=== PATIENT | male | born 1935 | race Caucasian/White ===

== ENCOUNTER → 2017-10-27 11:44 | Outpatient (CLI) | payer MEDICARE, SELFPAY ==
--- NOTE | 2017-10-27 12:00 | RAD_ITS ---
STUDY: X-RAY - RIGHT KNEE REASON FOR EXAM: Male, 82 years old. Right knee pain, no known injury TECHNIQUE: 4 view(s) of the knee. COMPARISON: None. FINDINGS: Normal visualized distal femur. Normal visualized proximal tibia and fibula. Normal proximal tibiofibular articulation. There is no demonstrated fracture. There is mild degenerative arthrosis of the medial femorotibial compartment. There is mild degenerative arthrosis of the lateral femorotibial compartment. There is mild degenerative arthrosis of the patellofemoral articulation. There is no demonstrated joint effusion. The soft tissue structures are unremarkable. RAD/Knee 4 or More Views IMPRESSION: Degenerative changes. No acute bony abnormality. Electronically Signed: Jose G Paz DO at 12:16 EDT Tel , Service support ,
== END ==
PROVIDERS: Visit Provider Anesthesiology Pain Medicine
DX: M25.561 Pain in right knee (principal)
CPT/HCPCS: 73564

== ENCOUNTER → 2017-11-16 10:20 | Outpatient (CLI) | payer MEDICARE, SELFPAY ==
--- NOTE | 2017-11-16 10:22 | RAD_ITS ---
STUDY: X-RAY - PELVIS AND RIGHT HIP REASON FOR EXAM: Male, 82 years old. Hip pain. TECHNIQUE: Radiological exam, hip, unilateral, with pelvis when performed; 2 or 3 views. COMPARISON: None. FINDINGS: Osseous alignments are anatomic. There is no acute fracture lucency. There is no cortical step-off. There is mild bilateral hip osteoarthritis. The patient is status post L4 and L5 posterior fusion with pedicle screws and rods. Calcified foci within the right pelvis soft tissues are most compatible with calcified phleboliths. RAD/HIP, UNI W/ Pelvis 2-3 Views IMPRESSION: No evident acute osseous abnormality. L4 and L5 fusion. Calcified pelvic phleboliths. Electronically Signed: Galileo Duarte MD at 11:12 EDT , Service support ,
== END ==
PROVIDERS: Visit Provider Anesthesiology Pain Medicine
DX: M25.551 Pain in right hip (principal)
CPT/HCPCS: 73502

== ENCOUNTER 2023-01-31 16:43 | Emergency (ER) | payer MEDICARE, SELFPAY ==
[2023-01-31 16:44] VITALS: BP 152/86; PULSE 89; RESP 14; TEMP 36.3; O2SAT 100; BMI 27.3
--- NOTE | 2023-01-31 16:54 | EDS_ITS ---
HPI History of Present Illness Chief Complaint: Upper Extremity Injury Narrative Narrative: Patient is a 87-year-old male who is complaining of months of right shoulder pain that is been getting worse. Patient has seen orthopedic surgeon in the past along with his , but they were uncertain if he did shoulders or not so they came to the ER for evaluation. Patient had a harder time sleeping last night secondary to right shoulder pain. Patient has no new injury. Patient is right-hand dominant. Patient is never seen a physician for his right shoulder pain previously. Patient is having hard time washing his hair, with flexion and abduction of the right shoulder, he is having more pain. Patient is using [id number] arthritic pain medication with minimal relief. Patient is alternating ice and heat with some pain relief. Patient has no other acute complaints this time. Patient is here with his . He has no chest pain, no shortness of breath. No headache, no neck pain, of his pain is into his right shoulder and right upper trapezius. No rash. No injury. No radiculopathy or paresthesias into the right upper extremity. PFSH PFSH Home Medications hydrocodone-acetaminophen 5-325mg 5mg-325mg 1 tab PO Q4H PRN PRN Pain 2 days #10 TABLETS 01/31/23 [Rx Last Taken Unknown] Allergy/AdvReac Type Severity Reaction Status Date / Time No Known Allergies Allergy Verified 01/31/23 17:33 Social History (System 03/25/21 @ 15:17 by Westley Cotton) Smoking Status: Former smoker ROS ROS ED ROS Narrative REVIEW OF SYSTEMS: Unless otherwise stated in this report the patient's positive and negative responses for review of systems for constitutional, eyes, ENT, cardiovascular, respiratory, gastrointestinal, neurological, , musculoskeletal, and integument systems and related systems to the presenting problem are either stated in the history of present illness or were not pertinent or were negative for the symptoms and/or complaints related to the presenting medical problem. EXAM Physical Exam Narrative Exam Narrative: Vital signs reviewed and patient is not hypoxic. General: The patient appears well and in no apparent distress. Patient is resting comfortably on cart. Not toxic, lethargic, or listless. Skin: Warm, dry, no pallor noted. There is no rash noted. Head: Normocephalic, atraumatic; patient has no midline or paracervical tenderness to palpation. Full range of motion of cervical spine no difficulty. Eye: Normal conjunctiva, no drainage, EOMI. PERRL. Ears, Nose, Mouth, and Throat: oral mucosa is moist. Nares patent. Mouth without vesicles. Cardiovascular: Regular Rate and Rhythm, no murmurs, gallops, or rubs Respiratory: Patient is in no distress, no accessory muscle use, lungs are clear to auscultation, no wheezing, rales or rhonchi Back: non-tender, GI: Soft, no tenderness Musculoskeletal: The patient has full range of motion of all extremities and joints with no difficulty except to his right shoulder. Patient has moderate amount of crepitus with flexion and extension of the right shoulder, patient is able to abduct to approximate 45 degrees with crepitus noted the entire time. Patient has no loss of motor or sensory distally from the right shoulder into the right upper extremity. Patient has normal cap refill to all 5 fingers of the right hand. Patient has no motor or sensory deficits to the right upper extremity. Patient does have moderate to severe pain with any range of motion of the right shoulder with significant amount of crepitus to the right shoulder with range of motion and some grimace noted to his face with range of motion as well. Patient's had no fall. He does have full flexion extension and 45 degrees of abduction, no obvious signs of fracture dislocation, this appears to be more arthritic in nature. No rash, no redness, no signs of cellulitis, no signs of septic joint. Patient has no motor, no sensory deficits. Neurological: A&O x4, normal speech, no focal neurological deficits. Psychiatric: Cooperative Const Vital Signs: 01/31/23 16:44 Temperature 97.3 F L Temperature Source Temporal Pulse Rate 89 Respiratory Rate 14 Blood Pressure 152/86 H Blood Pressure Mean 108 Pulse Ox 100 Oxygen Delivery Method Room Air MDM MDM MDM Narrative Medical decision making narrative: Patient has significant crepitus with any range of motion of right shoulder, most likely osteoarthritis. Patient's had no injury, no fall, no deficits to the right shoulder. Patient's pain has been getting worse over months. Patient will follow-up with their established orthopedic surgeon or was also given name and number Dr. Nath for follow-up orthopedic surgery. Patient was given a [place] in the ER, along with sent home with a prescription for pain medication. Patient is aware not to use pain medication with Tylenol, patient aware to use ice and not heat. Patient will follow-up with PCP if needed, otherwise call orthopedic surgery tomorrow for follow-up and more definitive care. 15 minutes of bedside time was done by myself with education on RICE therapy, treatment as an outpatient with orthopedic surgery with specialist for right shoulder pain. No indication for any radiographic imaging at this time Discharge Plan Triage Chief Complaint: Upper Extremity Injury ED Provider: Ciro Lynn Dx/Rx/DC Orders Clinical Impression: Osteoarthritis, Chronic right shoulder pain Instructions: Rotator Cuff Injury, Osteoarthritis: Common Sites, Arthritis: Exercise, ED Arthralgia, ED Osteoarthritis, ED RICE, ED Shoulder Pain, Uncertain Cause Prescriptions: New hydrocodone-acetaminophen [hydrocodone-acetaminophen] 5-325 mg tablet 1 tab PO Q4H PRN PRN (Reason: Pain) 2 Days Qty: 10 0RF Primary Care Provider: Nicho Tejada Referrals: Nicho Tejada MD [Primary Care Provider] - Carmine Nath DO [Med Staff - Active Staff] - Activity Restrictions/Additional Instructions: Ice 20 minutes on, 20 minutes off. Call your orthopedic surgeon tomorrow, or Dr. Nath is on-call as well and that you could cause a backup tomorrow. Pain medication has been prescribed. Do not take the pain pills with Tylenol at the same time, you could actually take too much Tylenol together. Pain medication may cause constipation, use stool softeners as needed. He will need to follow- up with an orthopedic surgeon for definitive care. Education was done at bedside and on discharge paperwork on rotator cuff as well. I am not diagnosin g with rotator cuff tear, this information was given to you for educational purposes only. Disposition Disposition: Home, Self Care
[2023-01-31] MEDS: HYDROcodone Bitartrate/Apap 5/325 Tablet PO (17:22)
[2023-01-31 18:16] VITALS: BP 148/71; PULSE 72; RESP 18; O2SAT 95
== END 2023-01-31 18:17 | disposition home or self-care (01) ==
PROVIDERS: Emergency Provider Emergency Medicine; PCP Internal Medicine; Visit Provider Emergency Medicine
DX: M19.011 Primary osteoarthritis, right shoulder (principal); Z87.891 Personal history of nicotine dependence; G89.29 Other chronic pain
CPT/HCPCS: 99282